=== PATIENT | female | born 1995 | race African-American/Black ===

== ENCOUNTER 2018-06-12 12:25 | Emergency (ER) | payer SELFPAY ==
[~2018-06-12] VITALS: Ht 175.3 cm; Wt 71.7 kg
--- NOTE | 2018-06-12 12:49 | PHYS DOC ---
Adult General Chief Complaint Chief Complaint: SEXUALLY TRANSMITTED DISEASE HPI HPI 23-year-old female presents to ER requesting treatment as her girlfriend was treated yesterday for a vaginal infection. Patient is uncertain as to what patient was treated for or with but is requesting same treatment. She reports she has had increased right lower suprapubic/groin pain. She reports LMP last wk NL. She reports she has had yellow discharge denies odor. She denies fever, abd distention, N/V/D, or swelling in extremities. Denies previous STDs. She reports she is in monogamous relationship with her girlfriend. Pt's girlfriend Bernabe arrived at bedside and gave verbal permission to access her records so her girlfriend could be tx'd with same meds. Review of Systems Review of Systems Constitutional: Denies fever or chills [] Cardiovascular: No additional information not addressed in HPI [] GI: Denies rt suprapubic/groin pain.Denies N/V/D : Denies hematuria. Reports dysuria and yellow vaginal discharge Musculoskeletal: Denies back pain or joint pain [] Integument: Denies rash, swelling or skin lesions [] Neurologic: Denies headache, focal weakness or sensory changes [] All other systems were reviewed and found to be within normal limits, except as documented in this note. Current Medications Current Medications Current Medications Medications (Trade) Dose Ordered Sig/Adrian Start Time Stop Time Status Last Admin Dose Admin Azithromycin (Zithromax) 1,000 mg 1X ONCE 06/12/18 13:45 06/12/18 13:46 DC 06/12/18 14:01 1,000 MG Ceftriaxone Sodium (Rocephin Im) 250 mg 1X ONCE 06/12/18 13:45 06/12/18 13:46 DC 06/12/18 13:57 250 MG Metronidazole (Flagyl) 2,000 mg 1X ONCE 06/12/18 13:45 06/12/18 13:46 DC 06/12/18 14:00 2,000 MG Ondansetron HCl (Zofran Odt) 4 mg 1X ONCE 06/12/18 13:45 06/12/18 13:46 DC 06/12/18 13:56 4 MG Allergies Allergies Allergies Coded Allergies Type Severity Reaction Last Updated Verified No Known Drug Allergies 06/12/18 No Physical Exam Physical Exam Constitutional: Well developed, well nourished, no acute distress, non-toxic appearance. [] HENT: Normocephalic, atraumatic, oropharynx moist, nose normal. [] Eyes: Pupils equal, conjunctiva normal, no discharge. [] Neck: Normal range of motion, supple, no stridor. [] Cardiovascular: Heart rate regular rhythm, no murmur [] Lungs & Thorax: Bilateral breath sounds clear to auscultation. Resp. equal/ nonlabored Abdomen: Bowel sounds normal, soft, tender to palp. rt suprapubic/groin, no masses, no pulsatile masses. [] Skin: Warm, dry, no erythema, no rash. [] Back: No tenderness, no CVA tenderness. [] Extremities: No tenderness, no cyanosis, no clubbing, ROM intact, no edema. [] Neurologic: Alert and oriented X 3, normal motor function, normal sensory function, no focal deficits noted. [] Psychologic: Affect normal, judgement normal, mood normal. [] Current Patient Data Vital Signs Vital Signs Date Time Temp Pulse Resp B/P (MAP) Pulse Ox O2 Delivery O2 Flow Rate FiO2 06/12/18 14:31 70 18 118/66 (83) 100 Room Air 06/12/18 12:25 98.4 98.4 Lab Values Laboratory Tests Test 06/12/18 12:47 Urine Collection Type Void Urine Color Yellow Urine Clarity Clear Urine pH 6.0 Urine Specific [place] 1.020 Urine Protein Negative mg/dL (NEG-TRACE) Urine Glucose (UA) Negative mg/dL (NEG) Urine Ketones (Stick) Negative mg/dL (NEG) Urine Blood Negative (NEG) Urine Nitrite Negative (NEG) Urine Bilirubin Negative (NEG) Urine Urobilinogen Dipstick 0.2 mg/dL (0.2 mg/dL) Urine Leukocyte Esterase Moderate (NEG) Urine RBC Occ /HPF (0-2) Urine WBC 11-20 /HPF (0-4) Urine Squamous Epithelial Cells Mod /LPF Urine Bacteria Few /HPF (0-FEW) Urine Mucus Mod /LPF Urine Test Negative (NEG) Urine Chlamydia DNA (PCR) Negative (Negative) Neisseria gonorrhoeae DNA (PCR) Negative (Negative) EKG EKG [] Radiology/Procedures Radiology/Procedures [] Course & Med Decision Making Course & Med Decision Making Pertinent Labs reviewed. (See chart for details) Pt was evaluated in the ER for complaints of right lower abdominal pain with reports her girlfriend was evaluated and treated in the ER yesterday for bacterial vaginosis and preventative treatment provided for pending cultures. Patient reports she has been having yellow discharge denies odor. Patient states she has had dysuria denies any hematuria or abnormal vaginal bleeding. He reports her LMP was normal limits ending last week. Patient denies fever, nausea or vomiting, or concerns for . Patient is requesting she get same treatment her girlfriend had and is refusing pelvic exam. Discussed UA results- moderate leuks w/11-20 WBCs neg. nitrate- discussed plans for tx with Rx of Keflex for UTI. Negative UCG. Will add order for GC chlamydia urine as patient refuses pelvic exam. Per pt's request will tx with same meds as her girlfriend- Flagyl, Rocephin, and Azithromycin- will pretx with Zofran ODT. Scar importance of having follow-up appointment with [facility] TECHNICIAN and into sized importance of regular pelvic exams on a yearly bases. Discussed home discharge plan and education provided on signs and symptoms to return to ER for. Will provide clinic and physician referral information with discharge paperwork. Patient advised on use of Tylenol and/or ibuprofen as directed on container as needed for pain. At time of discharge patient was in no visible distress nontoxic in appearance. Staff Physician Addendum: I was working in the ER during the course of this patient's visit. I was available for consultation as needed, but I was not directly involved in the care of this patient. Dragon Disclaimer Dragon Disclaimer This electronic medical record was generated, in whole or in part, using a voice recognition dictation system. Departure Departure Impression: Primary Impression: Urinary tract infection Additional Impression: Concern about STD in female without diagnosis Disposition: 01 HOME, SELF-CARE Condition: STABLE Referrals: UNKNOWN PCP NAME (PCP) Patient Instructions: Sexually Transmitted Disease, Urinary Tract Infection Additional Instructions: You should have regular vaginal exams with your [facility]LE[facility] TECHNICIAN or primary care physician yearly. Tylenol and/or ibuprofen as needed for pain as directed on container. Drink plenty of water. Follow-up with primary doctor for re-evaluation to have recheck to make sure your infection is completely treated. Scripts Cephalexin (KEFLEX) 500 Mg Capsule 1 CAP PO BID, #14 CAP 0 Refills Prov: TRINA VILLANUEVA APRN 06/12/18 Problem Qualifiers TRINA VILLANUEVA APRN Jun 12, 2018 12:49 LORE BHAGAT MD Jun 13, 2018 14:58
[2018-06-12 13:06] LABS: BILIRUBIN,URINE NEGATIVE (NEG); CLARITY,URINE CLEAR; COLOR,URINE YELLOW; NITRITE,URINE NEGATIVE (NEG); PROTEIN,URINE NEGATIVE (NEG-TRACE); UROBILINOGEN,URINE 0.2 mg/dL (0.2 mg/dL)
[2018-06-12 13:11] LABS: SQUAMOUS EPITHELIAL CELL,UR MOD /LPF
[2018-06-12 13:12] LABS: BACTERIA,URINE FEW /HPF (0-FEW); RBC,URINE OCC /HPF (0-2)
[2018-06-12] MEDS ORDERED: CEPH-264 PO (13:25)
[2018-06-12 13:43] LABS: U PREG PATIENT NEGATIVE (NEG)
[2018-06-12] MEDS ORDERED: cefTRIAXone IM 250 MG VIAL IM ONE (13:45)
[2018-06-12] MEDS ORDERED: ONDANSETRON ODT 4 MG TAB.RAPDIS. PO ONE (13:45)
[2018-06-12] MEDS ORDERED: metroNIDAZOLE 500 MG TABLET PO ONE (13:45)
[2018-06-12] MEDS ORDERED: AZITHROMYCIN 250 MG TABLET. PO ONE (13:45)
[2018-06-12 14:31] VITALS: BP 118/66
== END 2018-06-12 14:32 | disposition home or self-care (01) ==
LOC: ER 12:25
DX: N39.0 Urinary tract infection, site not specified (principal); Z20.2 Contact with and (suspected) exposure to infections with a predominantly sexual mode of transmission
CPT/HCPCS: 81001; 81025; 87086; 87491; 87591; 96372; 99284; J0696; Q0144; Q0162